=== PATIENT | male | born 1980 | race Hispanic/Latino ===

== ENCOUNTER 2018-07-24 19:42 | Emergency (ER) | payer OTHER ==
[2018-07-24] MEDS ORDERED: ONDANSETRON HCL 4 MG/2 ML VIAL ONE (20:01)
[2018-07-24] MEDS ORDERED: SODIUM CHLORIDE 0.9% 1000ML 1,000 ML IV ONE ×2 (20:02→20:19)
[2018-07-24] MEDS ORDERED: MORPHINE SULFATE 4 MG/1ML SYG ONE (20:02)
[2018-07-24 20:22] LABS: BASOPHILS % (AUTO) 0.5 % (0.0-5.0); EOSINOPHILS % (AUTO) 2.2 % (0.0-8.0); HEMATOCRIT 46.2 % (42-54); LYMPHOCYTES % (AUTO) 34.5 % (21.0-51.0); MEAN CORPUSCULAR HEMOGLOBIN 30.2 pg (27.0-33.0); MEAN CORPUSCULAR HGB CONC 34.9 g/dL (32.0-36.0); MEAN CORPUSCULAR VOLUME 86.6 fL (79-99); MONOCYTES % (AUTO) 9.7 % (3.0-13.0); NEUTROPHILS % (AUTO) 53.1 % (40.0-77.0); NUCLEATED RED BLOOD CELLS 0.1 % (0.0-0.19); PLATELET COUNT (AUTO) 164 K/uL (130-400); RED BLOOD CELL COUNT(AUTO) 5.33 MIL/uL (4.50-6.20); RED CELL DISTRIBUTION WIDTH 12.7 % (11.0-15.5); WHITE BLOOD COUNT (AUTO) 7.4 K/uL (4.8-10.8)
[2018-07-24] MEDS ORDERED: IOHEXOL-350 75 ML VIAL IV ONE (20:24)
[2018-07-24 20:32] LABS: CREATININE 0.8 mg/dL (0.5-1.5); POTASSIUM 3.6 mmol/L (3.5-5.1)
[2018-07-24 20:37] LABS: ALBUMIN 3.6 g/dL (3.5-5.0); BILIRUBIN,TOTAL 0.6 mg/dL (0.2-1.0); TOTAL PROTEIN, SERUM 7.1 g/dL (6.0-8.3)
== END 2018-07-24 22:36 | disposition home or self-care (01) ==
LOC: EDH 19:42
DX: K57.92 Diverticulitis of intestine, part unspecified, without perforation or abscess without bleeding (principal); Z98.890 Other specified postprocedural states
CPT/HCPCS: 36415; 74177; 76705; 80053; 82550; 83690; 84484; 85025; 93005; 96374; 96375; 99285; J2270; J2405; J7030 ×2; Q9967

== ENCOUNTER 2018-07-28 21:45 | Emergency (ER) | payer SELFPAY ==
[2018-07-28] MEDS ORDERED: ONDANSETRON HCL 4 MG/2 ML VIAL ONE (21:55)
[2018-07-28] MEDS ORDERED: SODIUM CHLORIDE 0.9% 1000ML 1,000 ML IV ONE (21:55)
[2018-07-28] MEDS ORDERED: KETOROLAC TROMETHAMINE 15MG/ML ONE (21:55)
[2018-07-28 22:04] LABS: BASOPHILS % (AUTO) 0.5 % (0.0-5.0); EOSINOPHILS % (AUTO) 0.9 % (0.0-8.0); HEMATOCRIT 50.9 % (42-54); MEAN CORPUSCULAR HEMOGLOBIN 30.1 pg (27.0-33.0); MEAN CORPUSCULAR HGB CONC 34.6 g/dL (32.0-36.0); NEUTROPHILS % (AUTO) 68.6 % (40.0-77.0); PLATELET COUNT (AUTO) 174 K/uL (130-400); RED BLOOD CELL COUNT(AUTO) 5.85 MIL/uL (4.50-6.20); WHITE BLOOD COUNT (AUTO) 9.6 K/uL (4.8-10.8)
[2018-07-28 22:20] LABS: CREATININE 0.9 mg/dL (0.5-1.5); POTASSIUM 3.6 mmol/L (3.5-5.1)
[2018-07-28 22:24] LABS: ALBUMIN 3.7 g/dL (3.5-5.0); BILIRUBIN,DIRECT 0.2 mg/dL (0.0-0.3); BILIRUBIN,TOTAL 0.8 mg/dL (0.2-1.0); TOTAL PROTEIN, SERUM 7.7 g/dL (6.0-8.3)
[2018-07-28 22:45] LABS: APPEARANCE,URINE CLEAR (CLEAR); BILIRUBIN,URINE MODERATE (NEGATIVE); COLOR,URINE YELLOW (YELLOW); GLUCOSE, URINE (UA) NEGATIVE (NEGATIVE); KETONES,URINE 40 mg/dL (NEGATIVE); LEUKOCYTE ESTERASE ,URINE TRACE (NEGATIVE); NITRATE,URINE POSITIVE (NEGATIVE); OCCULT BLOOD,URINE NEGATIVE (NEGATIVE); PH,URINE 5.5 (5.0-8.0); PROTEIN,URINE 100 mg/dL (NEGATIVE)
[2018-07-28 22:52] LABS: AMORPHOUS SEDIMENT,UR Many /LPF (None Seen); BACTERIA,URINE Few /HPF (None Seen); MUCUS,URINE Moderate LPF (None Seen); RBC,URINE 0-1 /HPF (0-1); SQUAMOUS EPITHELIAL CELL,UR Moderate /HPF (0-2); WBC,URINE 0-1 /HPF (0-1)
[2018-07-29] MEDS ORDERED: PROCHLORPERAZINE EDISYLATE 10 MG/2 ML VIAL ONE (00:12)
== END 2018-07-29 00:22 | disposition home or self-care (01) ==
LOC: EDH 21:45
DX: K57.92 Diverticulitis of intestine, part unspecified, without perforation or abscess without bleeding (principal); Z98.890 Other specified postprocedural states; Z72.0 Tobacco use
CPT/HCPCS: 36415; 80048; 80076; 81001; 82550; 83690; 85025; 96374; 96375; 99284; J0780; J1885; J2405; J7030

== ENCOUNTER 2020-04-07 16:27 | Inpatient (IN) | payer OTHER, SELFPAY ==
[~2020-04-07] VITALS: Ht 172.7 cm; Wt 104.0 kg
[2020-04-07 17:11] LABS: BASOPHILS % (AUTO) 0.4 % (0.0-5.0); EOSINOPHILS % (AUTO) 1.5 % (0.0-8.0); HEMATOCRIT 50.4 % (42-54); LYMPHOCYTES % (AUTO) 24.7 % (21.0-51.0); MEAN CORPUSCULAR HEMOGLOBIN 28.6 pg (27.0-33.0); MEAN CORPUSCULAR HGB CONC 34.1 g/dL (32.0-36.0); MEAN CORPUSCULAR VOLUME 83.7 fL (79-99); MONOCYTES % (AUTO) 9.2 % (3.0-13.0); NEUTROPHILS % (AUTO) 63.9 % (40.0-77.0); PLATELET COUNT (AUTO) 206 K/uL (130-400); RED BLOOD CELL COUNT(AUTO) 6.02 MIL/uL (4.50-6.20); WHITE BLOOD COUNT (AUTO) 7.4 K/uL (4.8-10.8)
[2020-04-07 17:22] LABS: INR 1.05 (0.85-1.15); PROTHROMBIN TIME 11.4 SEC (9.6-11.6)
[2020-04-07 17:24] LABS: PARTIAL THROMBOPLASTIN TIME 25.6 SEC (26.3-35.5)
[2020-04-07 17:28] LABS: CREATININE 0.9 mg/dL (0.5-1.5); POTASSIUM 3.6 mmol/L (3.5-5.1)
[2020-04-07 17:33] LABS: ALBUMIN 3.9 g/dL (3.5-5.0); TOTAL PROTEIN, SERUM 7.8 g/dL (6.0-8.3)
[2020-04-07] MEDS ORDERED: MORPHINE 4 MG SYG ONE (19:43)
[2020-04-07] MEDS ORDERED: ONDANSETRON 4MG INJ ONE (19:43)
[2020-04-07] MEDS ORDERED: ACETAMINOPHEN 325 MG TAB PO PRN ×2 (21:45)
[2020-04-07] MEDS ORDERED: MORPHINE 2 MG SYG IV PRN ×2 (21:45→22:00)
[2020-04-07] MEDS: LACTATED RINGERS 1000ML 1,000 ML IV SCH (21:45)
[2020-04-07] MEDS ORDERED: MAG/ALUM/SIMETH 30 ML UDCUP PO PRN (21:45)
[2020-04-07] MEDS ORDERED: DiphenhydrAMINE HCL 50 MG/ML VIAL IV PRN (21:45)
[2020-04-07] MEDS ORDERED: NITROGLYCERIN 0.4 MG SL TAB SL PRN (21:45)
[2020-04-07] MEDS ORDERED: GUAIFENESIN-DM 200/20 MG 10 ML PO PRN (21:45)
[2020-04-07] MEDS ORDERED: LACTULOSE 20 GM/30 ML UDCUP PO PRN (21:45)
[2020-04-07] MEDS ORDERED: DIPHENHYDRAMINE HCL 25 MG CAPSULE PO PRN (21:45)
[2020-04-08 05:56] LABS: BASOPHILS % (AUTO) 0.2 % (0.0-5.0); EOSINOPHILS % (AUTO) 0.2 % (0.0-8.0); HEMATOCRIT 49.3 % (42-54); LYMPHOCYTES % (AUTO) 20.1 % (21.0-51.0); MEAN CORPUSCULAR HGB CONC 33.3 g/dL (32.0-36.0); MEAN CORPUSCULAR VOLUME 84.3 fL (79-99); MONOCYTES % (AUTO) 9.9 % (3.0-13.0); NEUTROPHILS % (AUTO) 69.2 % (40.0-77.0); PLATELET COUNT (AUTO) 197 K/uL (130-400); RED BLOOD CELL COUNT(AUTO) 5.85 MIL/uL (4.50-6.20); RED CELL DISTRIBUTION WIDTH 12.9 % (11.0-15.5); WHITE BLOOD COUNT (AUTO) 8.3 K/uL (4.8-10.8)
[2020-04-08 06:01] LABS: POTASSIUM 3.8 mmol/L (3.5-5.1)
[2020-04-08 06:03] LABS: HEMOGLOBIN A1C 10.4 % (4.0-6.0)
[2020-04-08] MEDS ORDERED: ZOSYN 3.375GM+NS 50ML 50 ML IV ONE ×2 (07:39→20:01)
[2020-04-08] MEDS: LACTATED RINGERS 1000ML 1,000 ML IV SCH (07:45)
[2020-04-08] MEDS ORDERED: ENOXAPARIN SODIUM 40 MG/0.4 ML SYRINGE SQ ONE (08:06)
[2020-04-08] MEDS ORDERED: FAMOTIDINE 20MG VIAL IV ONE ×2 (08:07→20:01)
[2020-04-08] MEDS: ENOXAPARIN SODIUM 40 MG/0.4 ML SYRINGE SQ SCH (09:00)
[2020-04-08 09:48] LABS: APPEARANCE,URINE Cloudy (CLEAR); BILIRUBIN,URINE Small (NEGATIVE); COLOR,URINE Dark Yellow (YELLOW); GLUCOSE, URINE (UA) >=1000 mg/dL (NEGATIVE); KETONES,URINE Trace mg/dL (NEGATIVE); LEUKOCYTE ESTERASE ,URINE Negative (NEGATIVE); NITRATE,URINE Negative (NEGATIVE); OCCULT BLOOD,URINE Negative (NEGATIVE); PROTEIN,URINE POS 1+ mg/dL (NEGATIVE)
[2020-04-08 10:04] LABS: BACTERIA,URINE Moderate /HPF (None Seen); RBC,URINE 0-1 /HPF (0-1); SQUAMOUS EPITHELIAL CELL,UR 0-2 /HPF (0-2); WBC,URINE 0-1 /HPF (0-1)
[2020-04-08] MEDS ORDERED: LACTATED RINGERS 1000ML 1,000 ML IV ONE (13:30)
[2020-04-08] MEDS ORDERED: PEG 3350/NA SULF,BICARB,CL/KCL 4000 ML SOLN PO SCH (17:00)
[2020-04-08] MEDS: ZOSYN 3.375GM+NS 50ML 50 ML IV SCH (21:00)
[2020-04-08] MEDS: FAMOTIDINE 20MG VIAL IV SCH (21:00)
[2020-04-09 02:45] VITALS: BP 128/92
[2020-04-09] MEDS ORDERED: SIMV-43 PO (03:14)
[2020-04-09] MEDS ORDERED: METF-444 PO (03:14)
[2020-04-09] MEDS: ZOSYN 3.375GM+NS 50ML 50 ML IV SCH ×3 (05:10→22:43)
[2020-04-09 06:01] LABS: BASOPHILS % (AUTO) 0.3 % (0.0-5.0); EOSINOPHILS % (AUTO) 0.3 % (0.0-8.0); HEMATOCRIT 44.1 % (42-54); LYMPHOCYTES % (AUTO) 21.4 % (21.0-51.0); MEAN CORPUSCULAR HGB CONC 34.5 g/dL (32.0-36.0); NEUTROPHILS % (AUTO) 66.7 % (40.0-77.0); PLATELET COUNT (AUTO) 165 K/uL (130-400); RED BLOOD CELL COUNT(AUTO) 5.25 MIL/uL (4.50-6.20); RED CELL DISTRIBUTION WIDTH 12.9 % (11.0-15.5); WHITE BLOOD COUNT (AUTO) 7.7 K/uL (4.8-10.8)
[2020-04-09 06:09] LABS: CREATININE 0.8 mg/dL (0.5-1.5); POTASSIUM 3.5 mmol/L (3.5-5.1)
[2020-04-09 08:26] VITALS: BP 120/76
[2020-04-09] MEDS: FAMOTIDINE 20MG VIAL IV SCH ×2 (09:17→22:43)
[2020-04-09] MEDS: ENOXAPARIN SODIUM 40 MG/0.4 ML SYRINGE SQ SCH (09:18)
[2020-04-09 12:00] VITALS: BP 119/71
[2020-04-09] MEDS ORDERED: PEG 3350/NA SULF,BICARB,CL/KCL 4000 ML SOLN PO SCH (15:00)
[2020-04-09 16:59] VITALS: BP 130/57
[2020-04-09] MEDS: ONDANSETRON 4MG INJ IV PRN ×2 (18:55→23:04)
[2020-04-09 19:35] VITALS: BP 151/91
[2020-04-09 23:19] VITALS: BP 107/65
[2020-04-10] VITALS (21 sets, daily range): BP systolic 108–139; BP diastolic 50–85
[2020-04-10 05:09] LABS: BASOPHILS % (AUTO) 0.3 % (0.0-5.0); EOSINOPHILS % (AUTO) 0.4 % (0.0-8.0); HEMATOCRIT 44.5 % (42-54); MEAN CORPUSCULAR HEMOGLOBIN 28.4 pg (27.0-33.0); MEAN CORPUSCULAR HGB CONC 33.5 g/dL (32.0-36.0); MEAN CORPUSCULAR VOLUME 84.9 fL (79-99); MONOCYTES % (AUTO) 11.2 % (3.0-13.0); NEUTROPHILS % (AUTO) 61.8 % (40.0-77.0); PLATELET COUNT (AUTO) 184 K/uL (130-400); RED BLOOD CELL COUNT(AUTO) 5.24 MIL/uL (4.50-6.20); RED CELL DISTRIBUTION WIDTH 12.7 % (11.0-15.5); WHITE BLOOD COUNT (AUTO) 7.4 K/uL (4.8-10.8)
[2020-04-10 05:25] LABS: CREATININE 0.8 mg/dL (0.5-1.5); POTASSIUM 3.1 mmol/L (3.5-5.1)
[2020-04-10] MEDS: ZOSYN 3.375GM+NS 50ML 50 ML IV SCH ×3 (06:32→21:46)
[2020-04-10] MEDS: ONDANSETRON 4MG INJ IV PRN (06:50)
[2020-04-10] MEDS: ENOXAPARIN SODIUM 40 MG/0.4 ML SYRINGE SQ SCH (09:00)
[2020-04-10] MEDS: FAMOTIDINE 20MG VIAL IV SCH ×2 (10:16→21:46)
[2020-04-10] MEDS ORDERED: LIDOCAINE HCL-MPF 2% 5ML VIAL ONE (10:41)
[2020-04-10] MEDS ORDERED: PROPOFOL 10 MG/ML 20ML VIAL IV ONE (10:41)
[2020-04-10] MEDS ORDERED: MAGNESIUM CITRATE 296 ML SOLUTION PO SCH (14:00)
[2020-04-10] MEDS ORDERED: POTASSIUM CHLORIDE 20MEQ/100ML 100 ML IV PRN (17:45)
[2020-04-10] MEDS ORDERED: POTASSIUM CHLORIDE 10% ELIXIR 20 MEQ/15 ML UDCUP PO PRN (17:45)
[2020-04-10] MEDS: KCL 20 MEQ ERTAB PO PRN ×3 (17:51→23:46)
[2020-04-11 04:20] VITALS: BP 115/77
[2020-04-11 05:34] LABS: BASOPHILS % (AUTO) 0.5 % (0.0-5.0); EOSINOPHILS % (AUTO) 2.3 % (0.0-8.0); HEMATOCRIT 41.6 % (42-54); LYMPHOCYTES % (AUTO) 30.1 % (21.0-51.0); MEAN CORPUSCULAR HEMOGLOBIN 28.8 pg (27.0-33.0); MEAN CORPUSCULAR HGB CONC 34.4 g/dL (32.0-36.0); MEAN CORPUSCULAR VOLUME 83.9 fL (79-99); MONOCYTES % (AUTO) 12.2 % (3.0-13.0); NEUTROPHILS % (AUTO) 54.6 % (40.0-77.0); PLATELET COUNT (AUTO) 162 K/uL (130-400); RED BLOOD CELL COUNT(AUTO) 4.96 MIL/uL (4.50-6.20); RED CELL DISTRIBUTION WIDTH 12.7 % (11.0-15.5); WHITE BLOOD COUNT (AUTO) 5.8 K/uL (4.8-10.8)
[2020-04-11] MEDS: ZOSYN 3.375GM+NS 50ML 50 ML IV SCH ×3 (05:35→20:19)
[2020-04-11 06:02] LABS: CREATININE 0.8 mg/dL (0.5-1.5); POTASSIUM 3.7 mmol/L (3.5-5.1)
[2020-04-11 07:57] VITALS: BP 117/70
[2020-04-11] MEDS: FAMOTIDINE 20MG VIAL IV SCH ×2 (09:54→20:19)
[2020-04-11] MEDS: ENOXAPARIN SODIUM 40 MG/0.4 ML SYRINGE SQ SCH (09:55)
[2020-04-11] MEDS: KCL 20 MEQ ERTAB PO PRN ×2 (09:56→16:52)
[2020-04-11 11:58] VITALS: BP 116/78
[2020-04-11] MEDS ORDERED: MAGNESIUM CITRATE 296 ML SOLUTION ONE ×2 (15:01→15:02)
[2020-04-11 16:00] VITALS: BP 124/78
[2020-04-11 19:44] VITALS: BP 125/76
[2020-04-11 23:04] VITALS: BP 132/73
[2020-04-12 04:35] VITALS: BP_SYST 116; BP_DIAS 61; BP_DIAS 78
[2020-04-12 04:37] LABS: BASOPHILS % (AUTO) 0.6 % (0.0-5.0); EOSINOPHILS % (AUTO) 1.7 % (0.0-8.0); HEMATOCRIT 44.8 % (42-54); LYMPHOCYTES % (AUTO) 27.9 % (21.0-51.0); MEAN CORPUSCULAR HEMOGLOBIN 28.9 pg (27.0-33.0); MEAN CORPUSCULAR HGB CONC 34.6 g/dL (32.0-36.0); MEAN CORPUSCULAR VOLUME 83.4 fL (79-99); MONOCYTES % (AUTO) 12.4 % (3.0-13.0); NEUTROPHILS % (AUTO) 57.3 % (40.0-77.0); PLATELET COUNT (AUTO) 183 K/uL (130-400); RED BLOOD CELL COUNT(AUTO) 5.37 MIL/uL (4.50-6.20); RED CELL DISTRIBUTION WIDTH 12.8 % (11.0-15.5)
[2020-04-12 04:47] LABS: CREATININE 0.9 mg/dL (0.5-1.5); POTASSIUM 3.5 mmol/L (3.5-5.1)
[2020-04-12] MEDS: ZOSYN 3.375GM+NS 50ML 50 ML IV SCH ×3 (05:00→20:00)
[2020-04-12] MEDS: METRONIDAZOLE 500 MG TABLET PO SCH ×4 (05:02→20:00)
[2020-04-12] MEDS: KCL 20 MEQ ERTAB PO PRN ×3 (05:37→07:50)
[2020-04-12] MEDS ORDERED: LEVOFLOXACIN 500 MG TABLET PO SCH (06:00)
[2020-04-12 07:00] VITALS: BP 126/87
[2020-04-12] MEDS: FAMOTIDINE 20MG VIAL IV SCH ×2 (07:48→20:00)
[2020-04-12] MEDS: ENOXAPARIN SODIUM 40 MG/0.4 ML SYRINGE SQ SCH (07:48)
[2020-04-12 11:30] VITALS: BP 119/80
[2020-04-12] MEDS ORDERED: MAGNESIUM CITRATE 296 ML SOLUTION PO SCH (11:30)
[2020-04-12 16:00] VITALS: BP 119/81
[2020-04-12 20:00] VITALS: BP 122/75
[2020-04-13] VITALS: BP 119/77
[2020-04-13 04:00] VITALS: BP 113/87
[2020-04-13] MEDS: ZOSYN 3.375GM+NS 50ML 50 ML IV SCH ×3 (04:34→20:26)
[2020-04-13 05:05] LABS: BASOPHILS % (AUTO) 0.4 % (0.0-5.0); EOSINOPHILS % (AUTO) 1.8 % (0.0-8.0); HEMATOCRIT 44.8 % (42-54); LYMPHOCYTES % (AUTO) 29.1 % (21.0-51.0); MEAN CORPUSCULAR HEMOGLOBIN 28.4 pg (27.0-33.0); MEAN CORPUSCULAR HGB CONC 33.5 g/dL (32.0-36.0); MEAN CORPUSCULAR VOLUME 84.7 fL (79-99); NEUTROPHILS % (AUTO) 55.6 % (40.0-77.0); PLATELET COUNT (AUTO) 188 K/uL (130-400); RED BLOOD CELL COUNT(AUTO) 5.29 MIL/uL (4.50-6.20); RED CELL DISTRIBUTION WIDTH 12.7 % (11.0-15.5); WHITE BLOOD COUNT (AUTO) 6.9 K/uL (4.8-10.8)
[2020-04-13 05:22] LABS: POTASSIUM 3.4 mmol/L (3.5-5.1)
[2020-04-13] MEDS: LIDOCAINE HCL-MPF 1% 2ML VIAL IV PRN (05:52)
[2020-04-13] MEDS: POTASSIUM CHLORIDE 20MEQ/100ML 100 ML IV PRN (05:52)
[2020-04-13 08:00] VITALS: BP 104/71
[2020-04-13] MEDS: ENOXAPARIN SODIUM 40 MG/0.4 ML SYRINGE SQ SCH (09:00)
[2020-04-13] MEDS: FAMOTIDINE 20MG VIAL IV SCH ×2 (11:18→20:26)
[2020-04-13 11:50] VITALS: BP 110/68
[2020-04-13 16:00] VITALS: BP 117/78
[2020-04-13 20:00] VITALS: BP 122/72
[2020-04-14] VITALS (29 sets, daily range): BP systolic 115–166; BP diastolic 60–92
[2020-04-14] MEDS: ZOSYN 3.375GM+NS 50ML 50 ML IV SCH ×3 (04:49→20:54)
[2020-04-14 05:22] LABS: BASOPHILS % (AUTO) 0.6 % (0.0-5.0); EOSINOPHILS % (AUTO) 3.3 % (0.0-8.0); HEMATOCRIT 41.8 % (42-54); LYMPHOCYTES % (AUTO) 31.4 % (21.0-51.0); MEAN CORPUSCULAR HEMOGLOBIN 28.7 pg (27.0-33.0); MEAN CORPUSCULAR HGB CONC 34.4 g/dL (32.0-36.0); MEAN CORPUSCULAR VOLUME 83.4 fL (79-99); NEUTROPHILS % (AUTO) 53.4 % (40.0-77.0); PLATELET COUNT (AUTO) 192 K/uL (130-400); RED BLOOD CELL COUNT(AUTO) 5.01 MIL/uL (4.50-6.20); RED CELL DISTRIBUTION WIDTH 12.7 % (11.0-15.5); WHITE BLOOD COUNT (AUTO) 6.6 K/uL (4.8-10.8)
[2020-04-14 05:32] LABS: CREATININE 0.8 mg/dL (0.5-1.5); POTASSIUM 3.4 mmol/L (3.5-5.1)
[2020-04-14] MEDS: POTASSIUM CHLORIDE 20MEQ/100ML 100 ML IV PRN (06:09)
[2020-04-14] MEDS: LIDOCAINE HCL-MPF 1% 2ML VIAL IV PRN (06:10)
[2020-04-14] MEDS: ENOXAPARIN SODIUM 40 MG/0.4 ML SYRINGE SQ SCH (09:00)
[2020-04-14] MEDS: FAMOTIDINE 20MG VIAL IV SCH ×2 (09:07→20:54)
[2020-04-14] MEDS ORDERED: SUCCINYLCHOLINE CHLORIDE 20 MG/ML 10 ML VIAL ONE (14:58)
[2020-04-14] MEDS ORDERED: LIDOCAINE PF 100MG/5ML (2%) SYRINGE 5ML ONE (14:58)
[2020-04-14] MEDS ORDERED: ROCURONIUM 10MG/1ML SYR 10 MG/ML ML ONE ×2 (14:59→16:20)
[2020-04-14] MEDS ORDERED: PROPOFOL 10 MG/ML 20ML VIAL IV ONE ×2 (14:59→17:33)
[2020-04-14] MEDS ORDERED: MIDAZOLAM HCL 1 MG/ML 2ML VIAL ONE (14:59)
[2020-04-14] MEDS ORDERED: FENTANYL CITRATE PF 50 MCG/1 ML 5ML AMP IV ONE ×2 (15:01→16:38)
[2020-04-14] MEDS ORDERED: ROPIVACAINE 0.5% 5MG/ML 30ML IJ ONE (15:06)
[2020-04-14] MEDS ORDERED: METRONIDAZOLE 500MG/100ML BAG 100 ML ONE ×2 (15:40→20:52)
[2020-04-14] MEDS: INSULIN HUMULIN R 100 UNIT/ML 3ML SQ SCH ×2 (16:30→20:18)
[2020-04-14] MEDS ORDERED: GLYCOPYRROLATE 1 MG/5 ML SYRINGE ONE (17:26)
[2020-04-14] MEDS ORDERED: NEOSTIGMINE 5MG/5ML SYR IV ONE (17:26)
[2020-04-14] MEDS ORDERED: ONDANSETRON 4MG INJ IVP PRN (19:15)
[2020-04-14] MEDS: METRONIDAZOLE 500MG/100ML BAG 100 ML IVPB SCH (20:54)
[2020-04-15] VITALS (7 sets, daily range): BP systolic 109–135; BP diastolic 59–86
[2020-04-15] MEDS: KETOROLAC 30MG VIAL (30MG/ML) IV PRN (00:29)
[2020-04-15] MEDS: ZOSYN 3.375GM+NS 50ML 50 ML IV SCH ×3 (04:17→21:57)
[2020-04-15] MEDS: METRONIDAZOLE 500MG/100ML BAG 100 ML IVPB SCH ×3 (05:01→19:51)
[2020-04-15] MEDS: INSULIN HUMULIN R 100 UNIT/ML 3ML SQ SCH ×4 (05:46→21:00)
[2020-04-15 05:48] LABS: HEMATOCRIT 43.3 % (42-54); MEAN CORPUSCULAR HEMOGLOBIN 28.5 pg (27.0-33.0); MEAN CORPUSCULAR HGB CONC 33.9 g/dL (32.0-36.0); MEAN CORPUSCULAR VOLUME 84.1 fL (79-99); PLATELET COUNT (AUTO) 196 K/uL (130-400); RED BLOOD CELL COUNT(AUTO) 5.15 MIL/uL (4.50-6.20); RED CELL DISTRIBUTION WIDTH 12.6 % (11.0-15.5); WHITE BLOOD COUNT (AUTO) 11.4 K/uL (4.8-10.8)
[2020-04-15 05:57] LABS: POTASSIUM 4.5 mmol/L (3.5-5.1)
[2020-04-15 06:50] LABS: LYMPHOCYTES % (MANUAL) 4 % (22-44); MONOCYTES % (MANUAL) 7 % (2-9); SEGMENTED NEUTROPHILS % 89 % (40-70)
[2020-04-15 06:51] LABS: MAN.DIFF COMMENT-IMPRESSION MANUAL DIFFERENTIAL
[2020-04-15 06:52] LABS: PLATELET MORPHOLOGY COMMENT ADEQUATE
[2020-04-15] MEDS: FAMOTIDINE 20MG VIAL IV SCH ×2 (08:40→19:51)
[2020-04-15] MEDS: ENOXAPARIN SODIUM 40 MG/0.4 ML SYRINGE SQ SCH (08:41)
[2020-04-15] MEDS: MORPHINE 4 MG SYG IV PRN ×3 (08:45→19:57)
[2020-04-15] MEDS ORDERED: VANCOMYCIN PROTOCOL PER PHARMACY IV SCH (14:15)
[2020-04-16 04:00] VITALS: BP 115/63
[2020-04-16] MEDS: METRONIDAZOLE 500MG/100ML BAG 100 ML IVPB SCH ×3 (04:25→20:45)
[2020-04-16 05:40] LABS: BASOPHILS % (AUTO) 0.5 % (0.0-5.0); EOSINOPHILS % (AUTO) 0.9 % (0.0-8.0); HEMATOCRIT 42.1 % (42-54); LYMPHOCYTES % (AUTO) 17.8 % (21.0-51.0); MEAN CORPUSCULAR HEMOGLOBIN 28.2 pg (27.0-33.0); MEAN CORPUSCULAR HGB CONC 32.8 g/dL (32.0-36.0); MEAN CORPUSCULAR VOLUME 85.9 fL (79-99); MONOCYTES % (AUTO) 9.5 % (3.0-13.0); NEUTROPHILS % (AUTO) 71.1 % (40.0-77.0); PLATELET COUNT (AUTO) 186 K/uL (130-400); RED CELL DISTRIBUTION WIDTH 12.9 % (11.0-15.5); WHITE BLOOD COUNT (AUTO) 9.7 K/uL (4.8-10.8)
[2020-04-16 05:45] LABS: CREATININE 0.8 mg/dL (0.5-1.5); POTASSIUM 3.8 mmol/L (3.5-5.1)
[2020-04-16] MEDS: INSULIN HUMULIN R 100 UNIT/ML 3ML SQ SCH ×4 (06:03→21:00)
[2020-04-16] MEDS: ZOSYN 3.375GM+NS 50ML 50 ML IV SCH ×3 (06:03→20:45)
[2020-04-16 07:40] VITALS: BP 114/69
[2020-04-16] MEDS: MORPHINE 4 MG SYG IV PRN ×2 (08:03→20:49)
[2020-04-16] MEDS: FAMOTIDINE 20MG VIAL IV SCH ×2 (08:05→20:45)
[2020-04-16] MEDS: ENOXAPARIN SODIUM 40 MG/0.4 ML SYRINGE SQ SCH (08:05)
[2020-04-16 11:00] VITALS: BP 119/78
[2020-04-16 16:00] VITALS: BP 126/60
[2020-04-16 19:37] VITALS: BP 122/80
[2020-04-16 23:30] VITALS: BP 129/79
[2020-04-17 03:28] VITALS: BP 131/78
[2020-04-17] MEDS: ZOSYN 3.375GM+NS 50ML 50 ML IV SCH ×3 (05:13→20:19)
[2020-04-17] MEDS: METRONIDAZOLE 500MG/100ML BAG 100 ML IVPB SCH ×3 (05:13→22:19)
[2020-04-17 05:23] LABS: BASOPHILS % (AUTO) 0.4 % (0.0-5.0); EOSINOPHILS % (AUTO) 3.8 % (0.0-8.0); HEMATOCRIT 40.9 % (42-54); LYMPHOCYTES % (AUTO) 20.9 % (21.0-51.0); MEAN CORPUSCULAR HEMOGLOBIN 28.6 pg (27.0-33.0); MEAN CORPUSCULAR HGB CONC 33.7 g/dL (32.0-36.0); MEAN CORPUSCULAR VOLUME 84.9 fL (79-99); MONOCYTES % (AUTO) 12.1 % (3.0-13.0); NEUTROPHILS % (AUTO) 62.4 % (40.0-77.0); PLATELET COUNT (AUTO) 187 K/uL (130-400); RED BLOOD CELL COUNT(AUTO) 4.82 MIL/uL (4.50-6.20); RED CELL DISTRIBUTION WIDTH 12.7 % (11.0-15.5); WHITE BLOOD COUNT (AUTO) 8.5 K/uL (4.8-10.8)
[2020-04-17] MEDS: INSULIN HUMULIN R 100 UNIT/ML 3ML SQ SCH ×4 (05:30→20:19)
[2020-04-17 05:50] LABS: CREATININE 0.7 mg/dL (0.5-1.5); MAGNESIUM 1.8 mg/dL (1.80-2.40); POTASSIUM 3.5 mmol/L (3.5-5.1)
[2020-04-17 07:35] VITALS: BP 111/78
[2020-04-17] MEDS: FAMOTIDINE 20MG VIAL IV SCH ×2 (09:16→20:19)
[2020-04-17] MEDS: DOCUSATE SODIUM 100 MG CAP PO SCH (09:16)
[2020-04-17] MEDS: ENOXAPARIN SODIUM 40 MG/0.4 ML SYRINGE SQ SCH (09:17)
[2020-04-17 11:32] VITALS: BP 115/66
[2020-04-17] MEDS: KETOROLAC 30MG VIAL (30MG/ML) IV PRN (13:28)
[2020-04-17 16:00] VITALS: BP 112/67
[2020-04-17 19:57] VITALS: BP 107/70
[2020-04-17 23:58] VITALS: BP 124/85
[2020-04-18] MEDS: KCL 20 MEQ ERTAB PO PRN ×4 (01:08→22:51)
[2020-04-18] MEDS ORDERED: MAGNESIUM 2GM PREMIX 50ML 50 ML IV ONE (01:56)
[2020-04-18 04:08] VITALS: BP 106/68
[2020-04-18] MEDS: ZOSYN 3.375GM+NS 50ML 50 ML IV SCH ×3 (04:37→20:23)
[2020-04-18] MEDS: KETOROLAC 30MG VIAL (30MG/ML) IV PRN ×2 (04:46→18:15)
[2020-04-18] MEDS: INSULIN HUMULIN R 100 UNIT/ML 3ML SQ SCH ×4 (05:53→20:24)
[2020-04-18] MEDS: METRONIDAZOLE 500MG/100ML BAG 100 ML IVPB SCH ×3 (05:53→22:02)
[2020-04-18 05:54] LABS: BASOPHILS % (AUTO) 0.6 % (0.0-5.0); EOSINOPHILS % (AUTO) 4.7 % (0.0-8.0); LYMPHOCYTES % (AUTO) 20.4 % (21.0-51.0); MEAN CORPUSCULAR HEMOGLOBIN 28.1 pg (27.0-33.0); MEAN CORPUSCULAR HGB CONC 32.9 g/dL (32.0-36.0); MEAN CORPUSCULAR VOLUME 85.2 fL (79-99); MONOCYTES % (AUTO) 13.6 % (3.0-13.0); NEUTROPHILS % (AUTO) 60.4 % (40.0-77.0); PLATELET COUNT (AUTO) 215 K/uL (130-400); RED BLOOD CELL COUNT(AUTO) 4.81 MIL/uL (4.50-6.20); RED CELL DISTRIBUTION WIDTH 12.6 % (11.0-15.5); WHITE BLOOD COUNT (AUTO) 6.8 K/uL (4.8-10.8)
[2020-04-18 06:35] LABS: ALBUMIN 2.6 g/dL (3.5-5.0); BILIRUBIN,TOTAL 0.8 mg/dL (0.2-1.0); CREATININE 0.7 mg/dL (0.5-1.5); MAGNESIUM 1.8 mg/dL (1.80-2.40); POTASSIUM 3.6 mmol/L (3.5-5.1); TOTAL PROTEIN, SERUM 6.5 g/dL (6.0-8.3)
[2020-04-18 08:00] VITALS: BP 122/84
[2020-04-18] MEDS: DOCUSATE SODIUM 100 MG CAP PO SCH (09:10)
[2020-04-18] MEDS: FAMOTIDINE 20MG VIAL IV SCH ×2 (09:10→20:16)
[2020-04-18] MEDS: MAGNESIUM 2GM PREMIX 50ML 50 ML IV PRN (09:11)
[2020-04-18] MEDS: ENOXAPARIN SODIUM 40 MG/0.4 ML SYRINGE SQ SCH (09:17)
[2020-04-18 12:00] VITALS: BP 122/67
[2020-04-18 16:00] VITALS: BP_SYST 107; BP_SYST 157; BP_DIAS 63; BP_DIAS 77
[2020-04-18 20:20] VITALS: BP 108/72
[2020-04-19] VITALS (7 sets, daily range): BP systolic 102–115; BP diastolic 60–71
[2020-04-19] MEDS: KETOROLAC 30MG VIAL (30MG/ML) IV PRN (00:26)
[2020-04-19] MEDS: ZOSYN 3.375GM+NS 50ML 50 ML IV SCH ×3 (05:04→20:03)
[2020-04-19] MEDS: METRONIDAZOLE 500MG/100ML BAG 100 ML IVPB SCH ×3 (05:04→20:03)
[2020-04-19] MEDS: INSULIN HUMULIN R 100 UNIT/ML 3ML SQ SCH ×4 (05:36→19:32)
[2020-04-19 06:06] LABS: BASOPHILS % (AUTO) 0.5 % (0.0-5.0); EOSINOPHILS % (AUTO) 6.2 % (0.0-8.0); HEMATOCRIT 39.5 % (42-54); LYMPHOCYTES % (AUTO) 29.1 % (21.0-51.0); MEAN CORPUSCULAR HEMOGLOBIN 28.7 pg (27.0-33.0); MEAN CORPUSCULAR HGB CONC 33.7 g/dL (32.0-36.0); MEAN CORPUSCULAR VOLUME 85.1 fL (79-99); MONOCYTES % (AUTO) 15.2 % (3.0-13.0); NEUTROPHILS % (AUTO) 48.7 % (40.0-77.0); PLATELET COUNT (AUTO) 222 K/uL (130-400); RED BLOOD CELL COUNT(AUTO) 4.64 MIL/uL (4.50-6.20); RED CELL DISTRIBUTION WIDTH 12.8 % (11.0-15.5); WHITE BLOOD COUNT (AUTO) 6.5 K/uL (4.8-10.8)
[2020-04-19 06:19] LABS: MAGNESIUM 1.9 mg/dL (1.80-2.40); POTASSIUM 3.8 mmol/L (3.5-5.1)
[2020-04-19] MEDS: ENOXAPARIN SODIUM 40 MG/0.4 ML SYRINGE SQ SCH (08:46)
[2020-04-19] MEDS: FAMOTIDINE 20MG TAB PO SCH ×2 (08:46→20:03)
[2020-04-19] MEDS: DOCUSATE SODIUM 100 MG CAP PO SCH (08:46)
[2020-04-19] MEDS: MAGNESIUM 2GM PREMIX 50ML 50 ML IV PRN (15:05)
[2020-04-20 03:41] VITALS: BP 115/73
[2020-04-20] MEDS: METRONIDAZOLE 500MG/100ML BAG 100 ML IVPB SCH ×2 (04:53→13:28)
[2020-04-20] MEDS: ZOSYN 3.375GM+NS 50ML 50 ML IV SCH ×2 (04:54→13:00)
[2020-04-20] MEDS: INSULIN HUMULIN R 100 UNIT/ML 3ML SQ SCH ×2 (05:12→10:55)
[2020-04-20 08:04] VITALS: BP 115/71
[2020-04-20] MEDS: DOCUSATE SODIUM 100 MG CAP PO SCH (08:58)
[2020-04-20] MEDS: FAMOTIDINE 20MG TAB PO SCH (08:58)
[2020-04-20] MEDS: ENOXAPARIN SODIUM 40 MG/0.4 ML SYRINGE SQ SCH (08:59)
[2020-04-20 11:04] VITALS: BP 108/58
[2020-04-20 16:14] VITALS: BP 106/56
[2020-04-20] MEDS ORDERED: METF500S7 PO (16:36)
== END 2020-04-20 17:15 | disposition home or self-care (01) | DRG 330 ==
LOC: EDH 16:27 → EDHIP 16:28 → 3CH 04-09 01:46
PROVIDERS: ADMIT Family Medicine; ATTEND Family Medicine
PROC: 0DBN0ZZ Excision of Sigmoid Colon, Open Approach (ICD-10-PCS; principal; 2020-04-14 15:46)
DX: K56.699 Other intestinal obstruction unspecified as to partial versus complete obstruction (principal); E87.1 Hypo-osmolality and hyponatremia; I10 Essential (primary) hypertension; E78.5 Hyperlipidemia, unspecified; E11.9 Type 2 diabetes mellitus without complications; F17.200 Nicotine dependence, unspecified, uncomplicated; Z20.822 Contact with and (suspected) exposure to COVID-19; K57.30 Diverticulosis of large intestine without perforation or abscess without bleeding
CPT/HCPCS: 36415; 45378; 71045; 74018; 74176; 80048; 80053; 81001; 82550; 82948; 83036; 83605; 83690; 83735; 84484; 85025; 85610; 85730; 87088; 87426; 88307; 93005; 97039; A4344; A4606; G0378; J0330; J1650; J1815; J1885; J2001; J2250; J2270; J2405; J2543; J2704; J2710; J2795; J3010; J3475; J3480; J3490; J7030; J7120; U0003

== ENCOUNTER 2020-08-02 21:49 | Emergency (ER) | payer OTHER ==
[~2020-08-02] VITALS: Ht 172.7 cm; Wt 104.3 kg
[~2020-08-02 21:49] MED LIST: METF-444 PO; METF500S7 PO; SIMV-43 PO
[2020-08-02 21:52] VITALS: BP 137/63
[2020-08-02 22:04] LABS: BASOPHILS % (AUTO) 0.8 % (0.0-5.0); EOSINOPHILS % (AUTO) 3.4 % (0.0-8.0); HEMATOCRIT 43.8 % (42-54); LYMPHOCYTES % (AUTO) 50.1 % (21.0-51.0); MEAN CORPUSCULAR HEMOGLOBIN 28.4 pg (27.0-33.0); MEAN CORPUSCULAR HGB CONC 34.2 g/dL (32.0-36.0); NEUTROPHILS % (AUTO) 36.5 % (40.0-77.0); PLATELET COUNT (AUTO) 193 K/uL (130-400); RED BLOOD CELL COUNT(AUTO) 5.28 MIL/uL (4.50-6.20); RED CELL DISTRIBUTION WIDTH 12.8 % (11.0-15.5); WHITE BLOOD COUNT (AUTO) 6.3 K/uL (4.8-10.8)
[2020-08-02 22:15] LABS: CARBON DIOXIDE 22 mmol/L (21-32); CHLORIDE 102 mmol/L (101-111); CREATININE 0.9 mg/dL (0.5-1.5); GLOMERULAR FILTR. RATE CALC 98 mL/min (>60); GLUCOSE,RANDOM 158 mg/dL (70-105); POTASSIUM 3.6 mmol/L (3.5-5.1); SODIUM SERUM 137 mmol/L (136-145); UREA NITROGEN, BLOOD 11 mg/dL (7-18)
[2020-08-02] MEDS ORDERED: MORPHINE 4 MG SYG IM ONE (22:15)
[2020-08-02] MEDS ORDERED: NITROGLYCERIN 1GM OINT 1 INCH/1GM TD ONE (22:15)
[2020-08-02] MEDS ORDERED: ASPIRIN 325 MG TABLET PO ONE (22:15)
[2020-08-02] MEDS ORDERED: ONDANSETRON 4MG INJ IVP ONE (22:15)
[2020-08-02 22:17] LABS: INR 1.03 (0.85-1.15); PROTHROMBIN TIME 11.2 SEC (9.6-11.6)
[2020-08-02 22:25] LABS: ALANINE AMINOTRANSFERASE 24 U/L (12-78); ALBUMIN 3.5 g/dL (3.5-5.0); ASPARTATE AMINOTRANSFERASE 18 U/L (10-37); BILIRUBIN,TOTAL 0.5 mg/dL (0.2-1.0); CREATINE KINASE, TOTAL 171 U/L (21-232); MYOGLOBIN 41 ng/mL (10-92); TOTAL PROTEIN, SERUM 7.4 g/dL (6.0-8.3); TROPONIN I < 0.04 ng/mL (0.00-0.06)
[2020-08-03] VITALS: BP 104/69
[2020-08-03 01:19] LABS: AMPHET/METH SCREEN,URINE NEGATIVE (NEGATIVE); BARBITURATE SCREEN, URINE NEGATIVE (NEGATIVE); BENZODIAZEPINES SCREEN,URINE NEGATIVE (NEGATIVE); CANNABINOID SCREEN,URINE NEGATIVE (NEGATIVE); COCAINE SCREEN,URINE NEGATIVE (NEGATIVE); OPIATE SCREEN,URINE NEGATIVE (NEGATIVE); PHENCYCLIDINE SCREEN,URINE NEGATIVE (NEGATIVE)
[2020-08-03 03:28] VITALS: BP 102/67
[2020-08-03 05:50] VITALS: BP 101/67
[2020-08-03 08:06] VITALS: BP 132/78
== END 2020-08-03 08:13 | disposition home or self-care (01) ==
LOC: EDH 21:49
DX: R07.89 Other chest pain (principal); F41.1 Generalized anxiety disorder; F45.8 Other somatoform disorders; E11.9 Type 2 diabetes mellitus without complications; F17.200 Nicotine dependence, unspecified, uncomplicated; Z79.82 Long term (current) use of aspirin; I10 Essential (primary) hypertension; Z79.84 Long term (current) use of oral hypoglycemic drugs; Z79.899 Other long term (current) drug therapy
CPT/HCPCS: 36415; 71045; 80053; 80305; 82550; 83690; 83874; 84484 ×2; 85025; 85378; 85610; 93005 ×2; 96372; 96374; 99285; J2270; J2405